=== PATIENT | female | born 1940 | race Caucasian/White ===

== ENCOUNTER 2021-08-07 17:36 | Inpatient (IN) ==
--- NOTE | 2021-08-07 18:40 | Emergency Department Note ---
History of Present Illness General Chief complaint: Illness Stated complaint: URGENT CAR SENT, DIARRHEA, WEAK, DEHYDRATED Time Seen by Provider: 08/07/21 18:27 Source: patient History of Present Illness Provider complaint: Malaise Onset (ago): week(s) Location: head Pain Consistency: + constant Quality: + other (Malaise) Relieved By: + none Associated symptoms: + cough, + fever/chills, + headaches, + malaise, + nausea/vomiting and + weakness; no chest pain or no shortness of breath This is a 81-year-old female sent here from an urgent care center for further evaluation. She has been sick for about 6 to 7 days. She developed general malaise, fatigue and loss of appetite. She had a headache initially but that is seem to gone away. She states that when she sees food she cannot get herself to eat it. She did eat once and then she threw up but has not vomited since and does not feel nauseous currently. She has been forcing herself to drink but she states she generally does not drink very much. She had a fever at the urgent care center of 100.3. She has had loss of taste for about a week as well as judith rrhea. Her diarrhea is watery and loose without blood. It has been going on for 7 days. She denies any abdominal pain, chest pain or shortness of breath. She has had no loss of smell. She has had a minor cough. She has had no urinary symptoms. She was told that her urine was very concentrated at the urgent care center. She has been vaccinated for COVID-19 and did receive a booster. She has had no known sick contacts. Home Medications Medication Instructions Recorded Confirmed Type alendronate 70 mg tablet 70 mg PO WK 08/07/21 08/07/21 History vitamins A,C,F-nmcd-rkeovh 7,160 1 tab PO DAILY 08/07/21 08/07/21 History unit-113 mg-100 unit tablet Allergies Allergy/AdvReac Type Severity Reaction Status Date / Time Sulfa (Sulfonamide Allergy Unknown CAN'T Verified 08/07/21 18:49 Antibiotics) REMEMBER Past Med/Surg History Medical History Osteoporosis Social History Smoking Status: Never smoker Feels Safe at Home: Yes Review of Systems See HPI for pertinent positives & negatives. and A total of 10 systems reviewed and were otherwise negative Physical Exam Vital Signs Vital Signs - 24 hr 08/07/21 17:44 08/07/21 19:25 08/07/21 21:00 Temperature 36.6 C Temperature Source Oral Pulse Rate 98 H 86 Pulse Rate [Apical] 94 H 85 Respiratory Rate 18 20 20 Respiratory Effort / Characteristics Non-Labored Spontaneous Non-Labored Spontaneous Non-Labored Spontaneous Respiratory Depth Normal Normal Normal Respiratory Pattern Regular Regular Regular Blood Pressure 107/61 Blood Pressure [Right Arm] 134/56 L 138/62 Blood Pressure Mean 76 Blood Pressure Mean [Right Arm] 82 87 Blood Pressure Position Sitting Blood Pressure Position [Right Arm] Sitting Sitting Pulse Oximetry 95 95 97 Oxygen Delivery Method Room Air Room Air Sepsis Recent Fever Within 48 Hours No Sepsis New/Unexplained Change in Mental Status No Sepsis Action Taken by Nursing No Action Required Constitutional: Vital signs reviewed. Eyes: Pupils are equal round reactive to light. Conjunctiva are noninjected. ENT: Pharynx is clear without erythema or exudate. Mucous membranes are dry. Neck supple without meningeal signs. Respiratory: Clear to auscultation bilaterally. Breath sounds are equal bilaterally. Cardiovascular: Regular rate and rhythm. No rubs or gallops. GI: Soft, nondistended and nontender. Bowel sounds are present. Musculoskeletal: No peripheral edema. No lower extremity tenderness. Integumentary: No cyanosis. or jaundice. Neurological: The patient is awake and alert. No focal deficits. Hard of hearing. Psychiatric: Normal affect. Not anxious appearing. Course Administered Medications Lactated Ringer's (Lr) 1,000 mls @ 150 mls/hr IV .[id number] ONE Stop: 08/08/21 03:27 Last Admin: 08/07/21 21:31 Dose: 150 mls/hr Documented by: [id number] Discontinued Medications Acetaminophen (Acetaminophen 325 Mg Tab) 650 mg PO NOW STA Stop: 08/07/21 21:10 Last Admin: 08/07/21 21:38 Dose: 650 mg Documented by: [id number] Doxycycline Hyclate (Doxycycline Hyclate 100 Mg Cap) 100 mg PO NOW STA Stop: 08/07/21 20:06 Last Admin: 08/07/21 21:04 Dose: 100 mg Documented by: [id number] Sodium Chloride (Nss) 500 mls @ 80 mls/hr IV .[id number] JUAN J Stop: 09/06/21 18:44 Last Infusion: 08/07/21 21:50 Dose: 0 mls/hr Documented by: [id number] Infusion: 08/07/21 21:46 Dose: 0 mls/hr Documented by: [id number] Infusion: 08/07/21 21:10 Dose: 0 mls/hr Documented by: [id number] Admin: 08/07/21 19:16 Dose: 80 mls/hr Documented by: [id number] Potassium Chloride (Potassium Chloride Crtab 20 Meq Tabcr) 40 meq PO NOW STA Stop: 08/07/21 20:49 Last Admin: 08/07/21 21:15 Dose: Not Given Documented by: [id number] Potassium Chloride (Potassium Chloride Pwd 20 Meq Pack) 40 meq PO NOW STA Stop: 08/07/21 21:24 Last Admin: 08/07/21 21:39 Dose: 40 meq Documented by: [id number] Medical Decision Making Differential Diagnosis Dehydration, ERNESTO, malnourishment, COVID-19, influenza, UTI, metabolic derangement Medical Records Attestation: I reviewed the patient's medical records. I did perform a limited focused review of portions of the patient's old chart on the electronic medical record. The patient has had no recent pertinent visits to this hospital. Home Medications Current Medication List: was personally reviewed by me Laboratory Data Attestation: I reviewed the patient's lab results. Result diagrams: 08/07/21 18:00 08/07/21 18:00 Lab Results 08/07/21 08/07/21 08/07/21 Range/Units 18:00 18:00 18:00 WBC 2.87 L (4.8-10.8) K/uL RBC 4.37 (4.2-5.4) M/uL Hgb 13.4 (12.0-16.0) g/dL Hct 38.2 (37-47) % MCV 87.4 (80-100) fL MCH 30.7 (25-34) pg MCHC 35.1 (32-36) g/dL RDW Std Deviation 43.7 (36.4-46.3) fL RDW Coeff of Soham 13.6 (11.5-14.5) % Plt Count 15 L* (130-400) K/uL Immature Gran % (Auto) 0.3 % Neut % (Auto) 87.9 % Lymph % (Auto) 9.1 % [place] % (Auto) 2.4 % Eos % (Auto) 0.0 % Baso % (Auto) 0.3 % Neut # (Auto) 2.52 (1.4-6.5) K/uL Lymph # (Auto) 0.26 L (1.2-3.4) K/uL [place] # (Auto) 0.07 L (0.11-0.59) K/uL Eos # (Auto) 0.00 (0-0.5) K/uL Baso # (Auto) 0.01 (0-0.2) K/uL Immature Gran # (Auto) 0.01 (0.00-0.02) K/uL Toxic Vacuolation 1+ Platelet Estimate SIGNIFIC DECREASED (Normal) Echinocytes 2+ PT (9.0-12.0) Seconds INR (0.9-1.1) APTT (21.0-31.0) Seconds PTT Ratio Sodium 134 L (136-145) mmol/L Potassium 3.1 L (3.5-5.1) mmol/L Chloride 100 (98-107) mmol/L Carbon Dioxide 21 (21-32) mmol/L Anion Gap 13 H (3-11) BUN 53 H (6-23) mg/dl Creatinine 1.95 H (0.6-1.2) mg/dl Est Cr Clr Drug Dosing 16.6 ml/min Est GFR ( Amer) 27.7 ml/min Est GFR (Non-Af Amer) 23.9 ml/min BUN/Creatinine Ratio 27.2 H (10-20) Glucose 100 H (70-99(Fasting)) mg/dl Calcium 8.2 L (8.5-10.1) mg/dl Magnesium (1.7-2.4) mg/dl Total Bilirubin 2.0 H (0.2-1.0) mg/dl AST 61 H (13-39) U/L ALT 41 (7-52) U/L Alkaline Phosphatase 107 H (34-104) U/L Troponin I (0-0.04) ng/ml Total Protein 5.8 L (6.0-8.3) gm/dl Albumin 3.2 L (3.4-5.0) gm/dl Globulin 2.6 (2.5-4.0) gm/dl Albumin/Globulin Ratio 1.2 (0.9-2) TSH 2.509 (0.300-4.500) uIu/ml Anaplasma Smear See Comment A Anaplasma Comment Pos for Anaplasma Lyme Disease IgG Ab (Negative) Lyme Disease IgM Ab (Negative) SARS-CoV-2 (PCR) (Negative) Influenza Type A (PCR) (Neg) Influenza Type B (PCR) (Neg) RSV (RT-PCR) (Neg) 08/07/21 08/07/21 08/07/21 Range/Units 18:00 18:00 18:00 WBC (4.8-10.8) K/uL RBC (4.2-5.4) M/uL Hgb (12.0-16.0) g/dL Hct (37-47) % MCV (80-100) fL MCH (25-34) pg MCHC (32-36) g/dL RDW Std Deviation (36.4-46.3) fL RDW Coeff of Soham (11.5-14.5) % Plt Count (130-400) K/uL Immature Gran % (Auto) % Neut % (Auto) % Lymph % (Auto) % [place] % (Auto) % Eos % (Auto) % Baso % (Auto) % Neut # (Auto) (1.4-6.5) K/uL Lymph # (Auto) (1.2-3.4) K/uL [place] # (Auto) (0.11-0.59) K/uL Eos # (Auto) (0-0.5) K/uL Baso # (Auto) (0-0.2) K/uL Immature Gran # (Auto) (0.00-0.02) K/uL Toxic Vacuolation Platelet Estimate (Normal) Echinocytes PT (9.0-12.0) Seconds INR (0.9-1.1) APTT (21.0-31.0) Seconds PTT Ratio Sodium (136-145) mmol/L Potassium (3.5-5.1) mmol/L Chloride (98-107) mmol/L Carbon Dioxide (21-32) mmol/L Anion Gap (3-11) BUN (6-23) mg/dl Creatinine (0.6-1.2) mg/dl Est Cr Clr Drug Dosing ml/min Est GFR ( Amer) ml/min Est GFR (Non-Af Amer) ml/min BUN/Creatinine Ratio (10-20) Glucose (70-99(Fasting)) mg/dl Calcium (8.5-10.1) mg/dl Magnesium 2.4 (1.7-2.4) mg/dl Total Bilirubin (0.2-1.0) mg/dl AST (13-39) U/L ALT (7-52) U/L Alkaline Phosphatase (34-104) U/L Troponin I < 0.03 (0-0.04) ng/ml Total Protein (6.0-8.3) gm/dl Albumin (3.4-5.0) gm/dl Globulin (2.5-4.0) gm/dl Albumin/Globulin Ratio (0.9-2) TSH Cancelled (0.300-4.500) uIu/ml Anaplasma Smear Anaplasma Comment Lyme Disease IgG Ab (Negative) Lyme Disease IgM Ab (Negative) SARS-CoV-2 (PCR) (Negative) Influenza Type A (PCR) (Neg) Influenza Type B (PCR) (Neg) RSV (RT-PCR) (Neg) 08/07/21 08/07/21 08/07/21 Range/Units 19:30 19:39 19:39 WBC (4.8-10.8) K/uL RBC (4.2-5.4) M/uL Hgb (12.0-16.0) g/dL Hct (37-47) % MCV (80-100) fL MCH (25-34) pg MCHC (32-36) g/dL RDW Std Deviation (36.4-46.3) fL RDW Coeff of Soham (11.5-14.5) % Plt Count (130-400) K/uL Immature Gran % (Auto) % Neut % (Auto) % Lymph % (Auto) % [place] % (Auto) % Eos % (Auto) % Baso % (Auto) % Neut # (Auto) (1.4-6.5) K/uL Lymph # (Auto) (1.2-3.4) K/uL [place] # (Auto) (0.11-0.59) K/uL Eos # (Auto) (0-0.5) K/uL Baso # (Auto) (0-0.2) K/uL Immature Gran # (Auto) (0.00-0.02) K/uL Toxic Vacuolation Platelet Estimate (Normal) Echinocytes PT 9.8 (9.0-12.0) Seconds INR 0.9 (0.9-1.1) APTT 39.8 H (21.0-31.0) Seconds PTT Ratio 1.4 Sodium (136-145) mmol/L Potassium (3.5-5.1) mmol/L Chloride (98-107) mmol/L Carbon Dioxide (21-32) mmol/L Anion Gap (3-11) BUN (6-23) mg/dl Creatinine (0.6-1.2) mg/dl Est Cr Clr Drug Dosing ml/min Est GFR ( Amer) ml/min Est GFR (Non-Af Amer) ml/min BUN/Creatinine Ratio (10-20) Glucose (70-99(Fasting)) mg/dl Calcium (8.5-10.1) mg/dl Magnesium (1.7-2.4) mg/dl Total Bilirubin (0.2-1.0) mg/dl AST (13-39) U/L ALT (7-52) U/L Alkaline Phosphatase (34-104) U/L Troponin I (0-0.04) ng/ml Total Protein (6.0-8.3) gm/dl Albumin (3.4-5.0) gm/dl Globulin (2.5-4.0) gm/dl Albumin/Globulin Ratio (0.9-2) TSH (0.300-4.500) uIu/ml Anaplasma Smear Anaplasma Comment Lyme Disease IgG Ab Negative (Negative) Lyme Disease IgM Ab Negative (Negative) SARS-CoV-2 (PCR) NEGATIVE (Negative) Influenza Type A (PCR) Negative (Neg) Influenza Type B (PCR) Negative (Neg) RSV (RT-PCR) Negative (Neg) Imaging Data Radiologist's Impression: Chest X-Ray 08/07/21 18:34 XR chest 1V portable CLINICAL HISTORY: weakness. Evaluate cardiopulmonary status COMPARISON STUDY: No previous studies for comparison. TECHNIQUE: 1 view of the chest FINDINGS: Single frontal view of the chest demonstrates the cardiomediastinal silhouette to be within normal limits. There is a decreased inspiratory effort with elevation of the hemidiaphragms and crowding of the bronchovascular markings at the lung bases and centrally. The lungs are clear of alveolar opacities. There is no evidence for pleural effusion. There is no evidence for vascular congestion. There is no acute osseous pathology. IMPRESSION: 1. . There is a decreased inspiratory effort with otherwise no acute chest disease. ACT 112: Negative or not required by law. Electronically signed by: Sidney Glass M.D. 08/07/2021 7:02 PM ECG Data Attestation: I personally reviewed and interpreted this ECG as follows: Indication: + weakness Rate (beats per minute): 89 Rhythm: + normal sinus ECG [place]: + Left axis deviation ECG Findings: + LVH; no PVCs Comparison ECG Date: no prior available MDM Narrative I did evaluate the patient as noted above. The patient is presenting with generalized illness for about 6 to 7 days. IV access was established. She did appear dehydrated so I did treat her with normal saline IV. I did place an order for continuous cardiac monitoring. The monitor showed normal sinus rhythm at a rate of 86 bpm. I did order and personally review the patient's 12-lead EKG as described above. She has LVH and left axis deviation. No prior EKGs available for comparison. She denies having any chest pain or shortness of breath. I did order and personally reviewed the images of the patient's chest x-ray as described above. There is no evidence of pneumonia. I did order a urine analysis. I did order and review the patient's blood work as noted in the electronic medical record. CBC demonstrates leukopenia as well as thrombocytopenia. Electrolytes demonstrate a sodium of 134 and a potassium of 3.1. Creatinine is elevated at 1.95. Calcium is 8.2. Total bili is 2 and AST is 61. Testing for Lyme disease, SARS, influenza and RSV are all negative. Anaplasmosis smear is positive. I did discuss the test results with the patient and her daughter. I did treat the patient with doxycycline 100 mg p.o. I did recommend hospitalization for further care and hydration. I did discuss the case with the hospitalist and case work aide. Impression & Plan ERNESTO (acute kidney injury), Anaplasmosis, Thrombocytopenia, Leukopenia, Hyponatremia, Abnormal LFTs Discharge Plan Visit Data Chief Complaint: Illness Stated Complaint: URGENT CAR SENT, DIARRHEA, WEAK, DEHYDRATED ED Provider: Angel Means Discharge Problem: ERNESTO (acute kidney injury), Anaplasmosis, Thrombocytopenia, Leukopenia, Hyponatremia, Abnormal LFTs Patient Disposition: Being Evaluated by Hospitalist Forms Stand Alone Forms: My [facility] Prescriptions Prescriptions: No Action alendronate 70 mg tablet 70 mg PO WK RF: 0 Ocuvite Preservision 7,160 unit- 113 mg-100 unit Tablet 1 tab PO DAILY RF: 0 Referrals Referrals: Johnny Villarreal, [Primary Care Provider] -
[2021-08-07 18:42] LABS: Albumin Globulin Ratio 1.2 (0.9-2); Albumin Level 3.2 gm/dl (3.4-5.0); BUN Creatinine Ratio 27.2 (10-20); Calcium 8.2 mg/dl (8.5-10.1); Creatinine Clr Calc Pharmacy 16.6 ml/min; Est GFR (African American) 27.7 ml/min; Est GFR (Non-African American) 23.9 ml/min; Globulin 2.6 gm/dl (2.5-4.0); Potassium 3.1 mmol/L (3.5-5.1); Total Protein 5.8 gm/dl (6.0-8.3)
[2021-08-07] MEDS ORDERED: SODIUM CHLORIDE 0.9% 500 ML IV SCH (18:45)
--- NOTE | 2021-08-07 19:03 | XRay Report ---
XR chest 1V portable CLINICAL HISTORY: weakness. Evaluate cardiopulmonary status COMPARISON STUDY: No previous studies for comparison. TECHNIQUE: 1 view of the chest FINDINGS: Single frontal view of the chest demonstrates the cardiomediastinal silhouette to be within normal li mits. There is a decreased inspiratory effort with elevation of the hemidiaphragms and crowding of th e bronchovascular markings at the lung bases and centrally. The lungs are clear of alveolar opacities . There is no evidence for pleural effusion. There is no evidence for vascular congestion. There is n o acute osseous pathology. IMPRESSION: 1. . There is a decreased inspiratory effort with otherwise no acute chest disease. ACT 112: Negative or not required by law. Electronically signed by: Sidney Glass M.D. 08/07/2021 7:02 PM
[2021-08-07 19:23] LABS: Hematocrit (blood only) 38.2 % (37-47); Hemoglobin 13.4 g/dL (12.0-16.0); Mean Corpuscular Hemoglobin 30.7 pg (25-34); Mean Corpuscular Hgb Conc 35.1 g/dL (32-36); Mean Corpuscular Volume 87.4 fL (80-100); Platelet Count 15 K/uL (130-400); RDW Coefficient of Variation 13.6 % (11.5-14.5); RDW Standard Deviation 43.7 fL (36.4-46.3); Red Blood Count 4.37 M/uL (4.2-5.4); White Blood Count 2.87 K/uL (4.8-10.8)
[2021-08-07 19:34] LABS: Basophils # (auto) 0.01 K/uL (0-0.2); Basophils % (auto) 0.3 %; Immature Granulocytes # (auto) 0.01 K/uL (0.00-0.02); Immature Granulocytes % (auto) 0.3 %; Lymphocytes # (auto) 0.26 K/uL (1.2-3.4); Lymphocytes % (auto) 9.1 %; Monocytes # (auto) 0.07 K/uL (0.11-0.59); Monocytes % (auto) 2.4 %; Neutrophils # (auto) 2.52 K/uL (1.4-6.5); Neutrophils % (auto) 87.9 %
[2021-08-07 19:42] LABS: Echinocytes 2+; Platelet Estimate SIGNIFIC DECREASED (Normal); Toxic Vacuolation 1+
[2021-08-07 19:44] LABS: Anaplasmosis Smear(Rpt to DOH) Pos for Anaplasma
[2021-08-07] MEDS ORDERED: DOXYCYCLINE HYCLATE 100 MG CAP PO STA (20:05)
[2021-08-07 20:08] LABS: INR 0.9 (0.9-1.1); Partial Thromboplastin Ratio 1.4; Partial Thromboplastin Time 39.8 Seconds (21.0-31.0); Prothrombin Time 9.8 Seconds (9.0-12.0)
[2021-08-07 20:31] LABS: Influenza A virus by PCR Negative (Neg); Influenza B virus by PCR Negative (Neg); RSV by PCR Negative (Neg); SARS CoV2 RNA(COVID-19) InHosp NEGATIVE (Negative)
[2021-08-07 20:44] LABS: Lyme Ab IgG w/WB Rflx Negative (Negative); Lyme Ab IgM w/WB Rflx Negative (Negative)
[2021-08-07] MEDS ORDERED: POTASSIUM CHLORIDE CRTAB 20 MEQ TABCR PO STA (20:48)
[2021-08-07] MEDS ORDERED: LACTATED RINGER'S 1,000 ML IV ONE (20:48)
[2021-08-07] MEDS ORDERED: ACETAMINOPHEN 325 MG TAB PO STA (21:09)
[2021-08-07] MEDS ORDERED: POTASSIUM CHLORIDE PWD 20 MEQ PACK PO STA (21:23)
--- NOTE | 2021-08-07 22:20 | History & Physical Report ---
Date of Service August 07, 2021 Assessment & Plan (1) ARF (acute renal failure): Plan: Secondary to diarrheal illness from anaplasmosis Hypokalemia secondary to diarrheal illness Neutropenia, thrombocytopenia secondary to tickborne infection GMF Monitor creatinine response to IVF Nephrology consult if without improvement Doxycycline course for anaplasmosis Replace potassium DVT prophylaxis. SCDs Re: Thrombocytopenia Full code Patient daughter requesting updates from providers. Ms. Kristy Mccormick, contact #[phone]. Text document was generated using [employer] voice recognition software. It may contain grammatical or spelling errors. Kindly contact undersigned for clarification of any documentation item in question. History of Present Illness Chief Complaint: Diarrhea, weakness, dehydration Primary Care Provider: Johnny Villarreal, History obtained from patient, family, and records. History somewhat difficult to obtain from patient secondary to hearing impairment. Medical history significant for hearing loss, osteoporosis. One week history of fatigue, poor appetite, diarrhea yielding dark brown stools, left lower quadrant pain and generalized weakness. No chest pain, no S OB, no cough symptoms. Achy posterior headache symptoms, intermittent. No recollection of recent tick bites although there are a lot of ticks where patient lives. Dizziness described as lightheadedness about 5 days ago leading to fall and bruising on the left upper arm. Home COVID-19 test was negative. Patient seen at urgent care center today. Patient directed to ER for further evaluation. Patient given Doxycycline for possible anaplasmosis. Medical History as above Surgical History : Appendectomy, CHELO/BSO, ankle fracture surgery Family History : Breast cancer, stomach cancer, lung cancer, heart disease Personal/Social history : Non-smoker, occasional EtOH intake, lives with who has dementia Allergies Allergy/AdvReac Type Severity Reaction Status Date / Time Sulfa (Sulfonamide Allergy Unknown CAN'T Verified 08/07/21 18:49 Antibiotics) REMEMBER Home Medications Medication Instructions Recorded Confirmed Type alendronate 70 mg tablet 70 mg PO WK 08/07/21 08/07/21 History vitamins A,C,V-ijpo-awnvft 7,160 1 tab PO DAILY 08/07/21 08/07/21 History unit-113 mg-100 unit tablet Past Med/Surg History Medical History Osteoporosis Social History Smoking Status: Never smoker Hx Alcohol Use: No Hx Substance Use: No Preferred Language: Gabonese Communication Ability: Effective Yarn Conditioner Required: No Beliefs That Will Affect Care: None Current Living Situation: Spouse Current Living Situation Comment: Lives with (who has dementia) in a 1 story home. Other Information That Helps Us Care for You: No Feels Safe at Home: Yes Safety Concerns: Feels Safe At This Time Assistive Devices: Glasses and Hearing Aid - Bilateral Review of Systems Review of Systems: As per HPI, all 10 systems reviewed, all other ROS negative Physical Exam Physical Exam: GENERAL: Slightly uncomfortable, hard of hearing, no respiratory distress SKIN: Normal color, warm HEENT: [place] palpebral conjunctivae, no ptosis, chronic upper lip symmetry as per daughter, dry buccal mucosa NECK : Supple, no tenderness CHEST : CTA, no tenderness HEART : RRR, no obvious murmurs ABDOMEN: Some distention, nontender EXTREMITIES : No LE swelling/tenderness, ecchymosis left upper arm NEUROLOGIC : Coherent, chronic upper lip asymmetry, hard of hearing, gait and stance not assessed Results & Data Results & Data ([facility]) Vital Signs (Past 12 Hours) Vital Signs Temp Pulse Pulse Resp BP BP Pulse Ox 08/07/21 21:00 85 20 138/62 97 08/07/21 19:25 86 94 H 20 134/56 L 95 08/07/21 17:44 36.6 C 98 H 18 107/61 95 Laboratory Results 08/07/21 08/07/21 08/07/21 18:00 18:00 18:00 WBC 2.87 L RBC 4.37 Hgb 13.4 Hct 38.2 MCV 87.4 MCH 30.7 MCHC 35.1 RDW Std Deviation 43.7 RDW Coeff of Soham 13.6 Plt Count 15 L* Immature Gran % (Auto) 0.3 Neut % (Auto) 87.9 Lymph % (Auto) 9.1 [place] % (Auto) 2.4 Eos % (Auto) 0.0 Baso % (Auto) 0.3 Neut # (Auto) 2.52 Lymph # (Auto) 0.26 L [place] # (Auto) 0.07 L Eos # (Auto) 0.00 Baso # (Auto) 0.01 Immature Gran # (Auto) 0.01 Toxic Vacuolation 1+ Platelet Estimate SIGNIFIC DECREASED Echinocytes 2+ PT INR APTT PTT Ratio Sodium 134 L Potassium 3.1 L Chloride 100 Carbon Dioxide 21 Anion Gap 13 H BUN 53 H Creatinine 1.95 H Est Cr Clr Drug Dosing 16.6 Est GFR ( Amer) 27.7 Est GFR (Non-Af Amer) 23.9 BUN/Creatinine Ratio 27.2 H Glucose 100 H Calcium 8.2 L Magnesium Total Bilirubin 2.0 H AST 61 H ALT 41 Alkaline Phosphatase 107 H Troponin I Total Protein 5.8 L Albumin 3.2 L Globulin 2.6 Albumin/Globulin Ratio 1.2 TSH 2.509 Anaplasma Smear See Comment A Anaplasma Comment Pos for Anaplasma Lyme Disease IgG Ab Lyme Disease IgM Ab SARS-CoV-2 (PCR) Influenza Type A (PCR) Influenza Type B (PCR) RSV (RT-PCR) 08/07/21 08/07/21 08/07/21 18:00 18:00 18:00 WBC RBC Hgb Hct MCV MCH MCHC RDW Std Deviation RDW Coeff of Soahm Plt Count Immature Gran % (Auto) Neut % (Auto) Lymph % (Auto) [place] % (Auto) Eos % (Auto) Baso % (Auto) Neut # (Auto) Lymph # (Auto) [place] # (Auto) Eos # (Auto) Baso # (Auto) Immature Gran # (Auto) Toxic Vacuolation Platelet Estimate Echinocytes PT INR APTT PTT Ratio Sodium Potassium Chloride Carbon Dioxide Anion Gap BUN Creatinine Est Cr Clr Drug Dosing Est GFR ( Amer) Est GFR (Non-Af Amer) BUN/Creatinine Ratio Glucose Calcium Magnesium 2.4 Total Bilirubin AST ALT Alkaline Phosphatase Troponin I < 0.03 Total Protein Albumin Globulin Albumin/Globulin Ratio TSH Cancelled Anaplasma Smear Anaplasma Comment Lyme Disease IgG Ab Lyme Disease IgM Ab SARS-CoV-2 (PCR) Influenza Type A (PCR) Influenza Type B (PCR) RSV (RT-PCR) 08/07/21 08/07/21 08/07/21 19:30 19:39 19:39 WBC RBC Hgb Hct MCV MCH MCHC RDW Std Deviation RDW Coeff of Soham Plt Count Immature Gran % (Auto) Neut % (Auto) Lymph % (Auto) [place] % (Auto) Eos % (Auto) Baso % (Auto) Neut # (Auto) Lymph # (Auto) [place] # (Auto) Eos # (Auto) Baso # (Auto) Immature Gran # (Auto) Toxic Vacuolation Platelet Estimate Echinocytes PT 9.8 INR 0.9 APTT 39.8 H PTT Ratio 1.4 Sodium Potassium Chloride Carbon Dioxide Anion Gap BUN Creatinine Est Cr Clr Drug Dosing Est GFR ( Amer) Est GFR (Non-Af Amer) BUN/Creatinine Ratio Glucose Calcium Magnesium Total Bilirubin AST ALT Alkaline Phosphatase Troponin I Total Protein Albumin Globulin Albumin/Globulin Ratio TSH Anaplasma Smear Anaplasma Comment Lyme Disease IgG Ab Negative Lyme Disease IgM Ab Negative SARS-CoV-2 (PCR) NEGATIVE Influenza Type A (PCR) Negative Influenza Type B (PCR) Negative RSV (RT-PCR) Negative Diagnostic Findings CT head initial read: No intracranial hemorrhage, mass-effect or midline shift. There is no abnormal extra axial fluid collection. No evidence of acute infarct. Moderate periventricular white matter hypodensities are most consistent with chronic micro-angiopathy. Mild cortical atrophy. The visualized paranasal sinuses and mastoid air cells are clear. No fracture. CT abdomen pelvis initial read: The solid organs are within normal limits. No bowel obstruction. Sigmoid diverticulosiswithout evidence of diverticulitis. Nonvisualized appendix, however there are no secondarysigns of acute appendicitis. No fracture. Chest x-ray : There is a decreased inspiratory effort with otherwise no acute chest disease. EKG as per my interpretation : Rate 90, NSR, LAD, LAFB, LVH, no ischemia
[2021-08-07 23:07] LABS: Base Excess VBG -0.5 mEq/L; Oxygen Saturation VBG 80.6 %; pH VBG 7.49 (7.36-7.41)
[2021-08-07 23:29] LABS: BUN Creatinine Ratio 29.3 (10-20); Calcium 7.7 mg/dl (8.5-10.1); Est GFR (African American) 28.4 ml/min; Est GFR (Non-African American) 24.5 ml/min; Potassium 3.8 mmol/L (3.5-5.1)
[2021-08-08] MEDS ORDERED: HYDROmorphone INJ 0.5 MG/0.5 ML SYR IV PRN (00:01)
[2021-08-08] MEDS ORDERED: PROMETHAZINE HCL 6.25 MG in SODIUM CHLORIDE 0.9% 50 ML IV PRN (00:01)
[2021-08-08 02:38] LABS: Appearance Urine Cloudy (Clear); Bacteria Urine Automated Negative (Negative); Blood Urine 1+ (Negative); Color Urine Dark Yellow; Epithelial Cell Urine Auto >30 /lpf (0-5); Glucose Urine UA Negative (Negative); Ketones Urine Trace (Negative); Leukocyte Esterase Urine Trace (Negative); Nitrite Urine Negative (Negative); Protein Urine 2+ (Negative); RBC Urine Automated 0-4 /hpf (0-4); Specific Gravity Urine 1.017 (1.000-1.030); Urobilinogen Urine Negative (Negative)
[2021-08-08 02:44] LABS: Bilirubin Urine 1+ (Negative)
[2021-08-08] MEDS ORDERED: LACTATED RINGER'S 1,000 ML IV ONE (03:30)
--- NOTE | 2021-08-08 07:50 | CT Scan Report ---
CT OF THE HEAD WITHOUT CONTRAST CLINICAL HISTORY: Headache. COMPARISON STUDY: No previous studies for comparison. CT DOSE: 614.27 mGy.cm TECHNIQUE: Helical axial images of the head were obtained without IV contrast. Automated exposure con trol was utilized for the study. A dose lowering technique was utilized adhering to the principles o f ALARA. FINDINGS: No acute intracranial hemorrhage, midline shift or mass effect is present. White matter hyp odensities are suggestive of small vessel disease. Mild ventricular dilatation is likely due to centr al atrophy. The basal cisterns are patent. No extra-axial collections are present. There are no findi ngs to suggest acute dural sinus thrombosis or acute territorial infarct. No significant calvarial ab normalities are present. Visualized portions of the sinuses and mastoid air cells are clear. IMPRESSION: No acute intracranial findings. ACT 112: Negative or not required by law. Electronically signed by: Lior Grayson M.D. 08/08/2021 7:48 AM
--- NOTE | 2021-08-08 08:36 | CT Scan Report ---
CT OF THE ABDOMEN AND PELVIS WITHOUT CONTRAST CLINICAL HISTORY: Left-sided abdominal pain. COMPARISON STUDY: No previous studies for comparison. TECHNIQUE: Axial images of the abdomen and pelvis were obtained without IV contrast. Images were revi ewed in the axial, sagittal, and coronal planes. Automated exposure control was utilized for the jaqueline dy. A dose lowering technique was utilized adhering to the principles of ALARA. FINDINGS: No pneumatosis, free air or portal venous gas is present. No renal, ureteral or bladder lisette culi are present. No hydronephrosis or hydroureter. Evaluation of the remainder of the abdomen and pe lvis is suboptimal on this unenhanced exam. The liver, spleen, adrenal glands, kidneys and pancreas a re unremarkable. Note is made of a 1.5 cm lesion arising from the upper pole of the right kidney show n on axial image 150 of 441. This measures above water attenuation. There is no evidence for a bowel obstruction. The appendix is not visualized. There is no ascites. No fluid collection is suggest an a bscess. Note is made of moderate levoscoliosis of the lumbar spine. No acute fracture or suspicious l esion is identified within the visualized skeletal structures. IMPRESSION: 1. No urinary calculi or hydronephrosis. 2. No acute process within the abdomen or pelvis on unenhanced exam. 3. 1.5 cm lesion within the upper pole of the right kidney. This measures above water attenuation. Th is could reflect a solid renal lesion or hyperdense cyst. Nonemergent renal protocol CT is recommende d. Findings will be called/faxed to the ordering provider at time of dictation. ACT 112: Positive. There are findings on this exam that require communication between the performing entity and the patient following Patient Test Result Information Act ([place] Act 112) guidelines. Electronically signed by: Lior Grayson M.D. 08/08/2021 8:34 AM
[2021-08-08 09:26] LABS: Estimated Average Glucose 117 mg/dl; Hemoglobin A1C 5.7 % (4.5-5.6)
[2021-08-08] MEDS: DOXYCYCLINE HYCLATE 100 MG CAP PO SCH ×2 (09:33→20:02)
[2021-08-08 09:40] LABS: Albumin Globulin Ratio 1.2 (0.9-2); Albumin Level 2.4 gm/dl (3.4-5.0); BUN Creatinine Ratio 29.2 (10-20); Bilirubin,Total 1.3 mg/dl (0.2-1.0); Calcium 7.5 mg/dl (8.5-10.1); Est GFR (African American) 28.2 ml/min; Est GFR (Non-African American) 24.3 ml/min; Potassium 3.5 mmol/L (3.5-5.1); Total Protein 4.4 gm/dl (6.0-8.3)
[2021-08-08 09:41] LABS: Basophils # (auto) 0.03 K/uL (0-0.2); Basophils % (auto) 0.7 %; Echinocytes 1+; Hemoglobin 11.2 g/dL (12.0-16.0); Immature Granulocytes # (auto) 0.04 K/uL (0.00-0.02); Immature Granulocytes % (auto) 0.9 %; Lymphocytes # (auto) 0.67 K/uL (1.2-3.4); Lymphocytes % (auto) 15.1 %; Mean Corpuscular Hemoglobin 30.4 pg (25-34); Mean Corpuscular Volume 86.7 fL (80-100); Monocytes # (auto) 0.26 K/uL (0.11-0.59); Monocytes % (auto) 5.9 %; Neutrophils # (auto) 3.43 K/uL (1.4-6.5); Neutrophils % (auto) 77.4 %; Platelet Count 13 K/uL (130-400); Platelet Estimate SIGNIFIC DECREASED (Normal); RDW Coefficient of Variation 13.9 % (11.5-14.5); RDW Standard Deviation 44.5 fL (36.4-46.3); Red Blood Count 3.69 M/uL (4.2-5.4); White Blood Count 4.43 K/uL (4.8-10.8)
--- NOTE | 2021-08-08 11:18 | Electrocardiogram Report ---
Test Reason : Blood Pressure : / mmHG Vent. Rate : 089 BPM Atrial Rate : 089 BPM P-R Int : 148 ms QRS Dur : 084 ms QT Int : 360 ms P-R-T Axes : 051 -36 065 degrees QTc Int : 438 ms Normal sinus rhythm Left atrial enlargement Left axis deviation Left ventricular hypertrophy Abnormal ECG No previous ECGs available Confirmed by Thiago Lewis ([id number]) on 08/08/2021 11:18:43 AM Referred By: REFERRED SELF Confirmed By:Thiago Lewis
--- NOTE | 2021-08-08 16:31 | Hospitalist Progress Note ---
Date of Service August 08, 2021 Assessment & Plan (1) ARF (acute renal failure): Plan: Secondary to diarrheal illness from anaplasmosis, improved. She is tolerating PO now, will use IVF as needed until creatinine back to baseline. Replace lytes as needed. Hypokalemia secondary to diarrheal illness Neutropenia, thrombocytopenia secondary to tickborne infection. Improving TEDs, chemoprophylaixs contraindicated in setting of severe thrombocytopenia Full Code Dispo-to home when clinical improved and renal function returns to baseline. Lisseth Nichols DO [facility] Hospitalist (2) Anaplasmosis: (3) Thrombocytopenia: (4) Leukopenia: (5) Hyponatremia: (6) Abnormal LFTs: (7) Osteoporosis: (8) DVT prophylaxis: Admission and Anticipated Discharge Date Admission Date: August 07, 2021 Subjective 81 yo F admitted with anaplasmosis She is clinically improving and now has an appetite with food in front of her She denies pain She denies SOB, CP, abd pain denies fever Review of Systems Review of Systems: All systems were reviewed and negative except as indicated above. Physical Exam Physical Exam: CONSTITUTIONAL: WNWD, vitals as above, generally well- appearing EYES: normal conjunctivae, no scleral icterus ENT: external ear and nose normal, MMM NECK: trachea midline RESPIRATORY: clear to auscultation bilaterally, no crackles, rales or wheezes, normal respiratory effort CARDIOVASCULAR: regular rate and rhythm, S1 and 2 heard without murmurs, gallops or rubs, no JVD, no peripheral edema GASTROINTESTINAL: normal bowel sounds, soft, nontender, ND, no guarding MUSCULOSKELETAL: strength 5/5 throughout, head is normocephalic and atraumatic, SKIN: warm and dry, mild petechial appearance to legs NEUROLOGIC: CN 2-12 grossly intact, no sensory deficit, normal cognition, normal speech, no tremor PSYCHIATRIC: alert cooperative and oriented to person, place and time. Results & Data Results & Data ([facility]) Vital Signs (Past 12 Hours) Vital Signs Temp Pulse Resp BP Pulse Ox 08/08/21 15:47 36.5 C 68 18 117/66 95 08/08/21 07:57 36.8 C 68 18 92/55 L 94 Laboratory Results Short CBC 08/07/21 08/08/21 Range/Units 18:00 08:16 WBC 2.87 L 4.43 L (4.8-10.8) K/uL Hgb 13.4 11.2 L (12.0-16.0) g/dL Hct 38.2 32.0 L (37-47) % Plt Count 15 L* 13 L* (130-400) K/uL BMP 08/07/21 08/07/21 08/08/21 18:00 22:45 08:16 Sodium 134 L 132 L 134 L Potassium 3.1 L 3.8 D 3.5 Chloride 100 103 105 Carbon Dioxide BUN 53 H 56 H 56 H Creatinine 1.95 H 1.91 H 1.92 H Glucose 100 H 129 H 87 Calcium 8.2 L 7.7 L 7.5 L Cardiac Enzymes 08/07/21 08/08/21 Range/Units 18:00 08:16 Total Creatine Kinase 88 (26-192) U/L Troponin I < 0.03 (0-0.04) ng/ml Liver Function 08/07/21 08/08/21 Range/Units 18:00 08:16 Total Bilirubin 2.0 H 1.3 H (0.2-1.0) mg/dl AST 61 H 41 H (13-39) U/L ALT 41 29 (7-52) U/L Alkaline Phosphatase 107 H 82 (34-104) U/L Albumin 3.2 L 2.4 L (3.4-5.0) gm/dl Urine 08/08/21 Range/Units 01:45 Urine Color Dark Yellow Urine Appearance Cloudy A (Clear) Urine pH 5.0 (4.5-7.5) Ur Specific [place] 1.017 (1.000-1.030) Urine Protein 2+ H (Negative) Urine Glucose (UA) Negative (Negative) Diagnostic Findings Head CT 08/07/21 21:10 CT OF THE HEAD WITHOUT CONTRAST CLINICAL HISTORY: Headache. COMPARISON STUDY: No previous studies for comparison. CT DOSE: 614.27 mGy.cm TECHNIQUE: Helical axial images of the head were obtained without IV contrast. Automated exposure control was utilized for the study. A dose lowering technique was utilized adhering to the principles of ALARA. FINDINGS: No acute intracranial hemorrhage, midline shift or mass effect is present. White matter hypodensities are suggestive of small vessel disease. Mild ventricular dilatation is likely due to central atrophy. The basal cisterns are patent. No extra-axial collections are present. There are no findings to suggest acute dural sinus thrombosis or acute territorial infarct. No significant calvarial abnormalities are present. Visualized portions of the sinuses and mastoid air cells are clear. IMPRESSION: No acute intracranial findings. ACT 112: Negative or not required by law. Electronically signed by: Lior Grayson M.D. 08/08/2021 7:48 AM Abdomen/Pelvis CT 08/07/21 22:18 CT OF THE ABDOMEN AND PELVIS WITHOUT CONTRAST CLINICAL HISTORY: Left-sided abdominal pain. COMPARISON STUDY: No previous studies for comparison. TECHNIQUE: Axial images of the abdomen and pelvis were obtained without IV contrast. Images were reviewed in the axial, sagittal, and coronal planes. Automated exposure control was utilized for the study. A dose lowering technique was utilized adhering to the principles of ALARA. FINDINGS: No pneumatosis, free air or portal venous gas is present. No renal, u reteral or bladder calculi are present. No hydronephrosis or hydroureter. Evaluation of the remainder of the abdomen and pelvis is suboptimal on this unenhanced exam. The liver, spleen, adrenal glands, kidneys and pancreas are unremarkable. Note is made of a 1.5 cm lesion arising from the upper pole of the right kidney shown on axial image 150 of 441. This measures above water attenuation. There is no evidence for a bowel obstruction. The appendix is not visualized. There is no ascites. No fluid collection is suggest an abscess. Note is made of moderate levoscoliosis of the lumbar spine. No acute fracture or suspicious lesion is identified within the visualized skeletal structures. IMPRESSION: 1. No urinary calculi or hydronephrosis. 2. No acute process within the abdomen or pelvis on unenhanced exam. 3. 1.5 cm lesion within the upper pole of the right kidney. This measures above water attenuation. This could reflect a solid renal lesion or hyperdense cyst. Nonemergent renal protocol CT is recommended. Findings will be called/faxed to the ordering provider at time of dictation. ACT 112: Positive. There are findings on this exam that require communication between the performing entity and the patient following Patient Test Result Information Act ([place] Act 112) guidelines. Electronically signed by: Lior Grayson M.D. 08/08/2021 8:34 AM Medications Administered Current Inpatient Medications Doxycycline Hyclate (Doxycycline Hyclate 100 Mg Cap) 100 mg PO BID JUAN J Stop: 08/18/21 08:59 Last Admin: 08/08/21 09:33 Dose: 100 mg Documented by: Hydromorphone HCl (Hydromorphone Inj 0.5 Mg/0.5 Ml Syr) 0.25 mg IV Q6H PRN PRN Reason: Pain Stop: 08/22/21 00:00 Promethazine HCl 6.25 mg/ (Sodium Chloride) 50.25 mls @ 201 mls/hr IV Q6H PRN PRN Reason: Nausea And Vomiting Stop: 09/07/21 00:00 Tramadol HCl (Tramadol Hcl 50 Mg Tablet) 25 - 50 mg PO Q4H PRN PRN Reason: Pain Stop: 09/06/21 21:09 (1) Leukopenia Leukopenia type: unspecified Qualified Code(s): D72.819 - Decreased white blood cell count, unspecified
[2021-08-09] MEDS: traMADol HCL 50 MG TABLET PO PRN ×2 (03:23→20:44)
[2021-08-09 08:28] LABS: Albumin Globulin Ratio 1.1 (0.9-2); Albumin Level 2.3 gm/dl (3.4-5.0); BUN Creatinine Ratio 33.6 (10-20); Bilirubin,Total 0.9 mg/dl (0.2-1.0); Calcium 7.9 mg/dl (8.5-10.1); Creatinine Clr Calc Pharmacy 24.3 ml/min; Est GFR (African American) 43.6 ml/min; Est GFR (Non-African American) 37.6 ml/min; Potassium 3.3 mmol/L (3.5-5.1); Total Protein 4.3 gm/dl (6.0-8.3)
[2021-08-09 08:48] LABS: Hematocrit (blood only) 32.4 % (37-47); Hemoglobin 11.6 g/dL (12.0-16.0); Mean Corpuscular Hemoglobin 30.6 pg (25-34); Mean Corpuscular Hgb Conc 35.8 g/dL (32-36); Mean Corpuscular Volume 85.5 fL (80-100); Mean Platelet Volume 12.8 fL (7.4-10.4); Platelet Count 21 K/uL (130-400); RDW Coefficient of Variation 14.1 % (11.5-14.5); RDW Standard Deviation 44.5 fL (36.4-46.3); Red Blood Count 3.79 M/uL (4.2-5.4)
[2021-08-09 08:56] LABS: Acanthocytes 1+; Basophils # (auto) 0.02 K/uL (0-0.2); Basophils % (auto) 0.5 %; Echinocytes 1+; Eosinophils # (auto) 0.01 K/uL (0-0.5); Eosinophils % (auto) 0.3 %; Immature Granulocytes # (auto) 0.03 K/uL (0.00-0.02); Immature Granulocytes % (auto) 0.8 %; Lymphocytes # (auto) 0.88 K/uL (1.2-3.4); Lymphocytes % (auto) 23.2 %; Microcytosis Present; Monocytes # (auto) 0.36 K/uL (0.11-0.59); Monocytes % (auto) 9.5 %; Neutrophils % (auto) 65.7 %
[2021-08-09] MEDS: DOXYCYCLINE HYCLATE 100 MG CAP PO SCH ×2 (09:35→20:45)
[2021-08-09] MEDS ORDERED: SODIUM CHLORIDE 0.9% 1000ML 1,000 ML IV SCH (10:00)
[2021-08-09] MEDS ORDERED: POTASSIUM CHLORIDE CRTAB 20 MEQ TABCR PO STA (10:00)
--- NOTE | 2021-08-09 13:52 | Hospitalist Progress Note ---
Date of Service August 09, 2021 Assessment & Plan (1) ARF (acute renal failure): Plan: Secondary to diarrheal illness and poor PO intake from anaplasmosis, improved. She is tolerating PO now, will use IVF as needed until creatinine back to baseline. Replace lytes as needed. Neutropenia, thrombocytopenia secondary to tickborne infection. Improving with doxycycline. (2) Anaplasmosis: (3) Thrombocytopenia: (4) Leukopenia: (5) Hyponatremia: (6) Renal mass: Plan: 1.5 cm lesion within the upper pole of the right kidney. This measures above water attenuation. This could reflect a solid renal lesion or hyperdense cyst. Nonemergent renal protocol CT is recommended which cannot be performed until her kidney function is improved. Will defer until that time. (7) Abnormal LFTs: (8) Osteoporosis: (9) DVT prophylaxis: Plan: TEDs, chemoprophylaixs contraindicated in setting of severe thrombocytopenia Full Code Dispo-to home when clinical improved and renal function returns to baseline. Lisseth Nichols DO [facility] Hospitalist Admission and Anticipated Discharge Date Admission Date: August 07, 2021 Subjective 81 yo F admitted with anaplasmosis She is clinically improved She denies pain She denies SOB, CP, abd pain denies fever Review of Systems Review of Systems: All systems were reviewed and negative except as indicated above. Physical Exam Physical Exam: CONSTITUTIONAL: WNWD, vitals as above, generally well- appearing EYES: normal conjunctivae, no scleral icterus ENT: external ear and nose normal, MMM NECK: trachea midline RESPIRATORY: clear to auscultation bilaterally, no crackles, rales or wheezes, normal respiratory effort CARDIOVASCULAR: regular rate and rhythm, S1 and 2 heard without murmurs, gallops or rubs, no JVD, no peripheral edema GASTROINTESTINAL: normal bowel sounds, soft, nontender, ND, no guarding MUSCULOSKELETAL: strength 5/5 throughout, head is normocephalic and atraumatic, SKIN: warm and dry, mild petechial appearance to legs NEUROLOGIC: CN 2-12 grossly intact, no sensory deficit, normal cognition, normal speech, no tremor PSYCHIATRIC: alert cooperative and oriented to person, place and time. Results & Data Results & Data ([facility]) Vital Signs (Past 12 Hours) Vital Signs Temp Pulse Resp BP Pulse Ox 08/09/21 07:40 36.5 C 71 15 126/61 96 Laboratory Results Short CBC 08/09/21 Range/Units 07:53 WBC 3.80 L (4.8-10.8) K/uL Hgb 11.6 L (12.0-16.0) g/dL Hct 32.4 L (37-47) % Plt Count 21 L* D (130-400) K/uL BMP 08/09/21 07:53 Sodium 138 Potassium 3.3 L Chloride 108 H Carbon Dioxide 23 BUN 45 H Creatinine 1.34 H D Glucose 78 Calcium 7.9 L Liver Function 08/09/21 Range/Units 07:53 Total Bilirubin 0.9 (0.2-1.0) mg/dl AST 37 (13-39) U/L ALT 27 (7-52) U/L Alkaline Phosphatase 112 H (34-104) U/L Albumin 2.3 L (3.4-5.0) gm/dl Medications Administered Current Inpatient Medications Doxycycline Hyclate (Doxycycline Hyclate 100 Mg Cap) 100 mg PO BID [facility] Stop: 08/18/21 08:59 Last Admin: 08/09/21 09:35 Dose: 100 mg Documented by: Hydromorphone HCl (Hydromorphone Inj 0.5 Mg/0.5 Ml Syr) 0.25 mg IV Q6H PRN PRN Reason: Pain Stop: 08/22/21 00:00 Promethazine HCl 6.25 mg/ (Sodium Chloride) 50.25 mls @ 201 mls/hr IV Q6H PRN PRN Reason: Nausea And Vomiting Stop: 09/07/21 00:00 Sodium Chloride (Nss 1000ml) 1,000 mls @ 80 mls/hr IV .[id number] [facility] Stop: 08/09/21 22:29 Last Admin: 08/09/21 10:36 Dose: 80 mls/hr Documented by: Tramadol HCl (Tramadol Hcl 50 Mg Tablet) 25 - 50 mg PO Q4H PRN PRN Reason: Pain Stop: 09/06/21 21:09 Last Admin: 08/09/21 03:23 Dose: 50 mg Documented by: (1) Leukopenia Leukopenia type: unspecified Qualified Code(s): D72.819 - Decreased white blood cell count, unspecified
[2021-08-10 08:22] LABS: Hematocrit (blood only) 33.7 % (37-47); Hemoglobin 11.6 g/dL (12.0-16.0); Mean Corpuscular Hemoglobin 30.3 pg (25-34); Mean Corpuscular Hgb Conc 34.4 g/dL (32-36); Platelet Count 34 K/uL (130-400); RDW Coefficient of Variation 14.4 % (11.5-14.5); RDW Standard Deviation 46.8 fL (36.4-46.3); Red Blood Count 3.83 M/uL (4.2-5.4); White Blood Count 3.31 K/uL (4.8-10.8)
[2021-08-10 08:23] LABS: Platelet Estimate Decreased (Normal)
[2021-08-10 08:45] LABS: Albumin Globulin Ratio 1.1 (0.9-2); Albumin Level 2.3 gm/dl (3.4-5.0); BUN Creatinine Ratio 26.2 (10-20); Bilirubin,Total 0.8 mg/dl (0.2-1.0); Calcium 7.9 mg/dl (8.5-10.1); Creatinine Clr Calc Pharmacy 30.4 ml/min; Est GFR (African American) 57.2 ml/min; Est GFR (Non-African American) 49.3 ml/min; Magnesium 1.9 mg/dl (1.7-2.4); Phosphorus 2.7 mg/dl (2.5-4.9); Potassium 4.2 mmol/L (3.5-5.1); Total Protein 4.3 gm/dl (6.0-8.3)
[2021-08-10] MEDS: DOXYCYCLINE HYCLATE 100 MG CAP PO SCH (08:56)
--- NOTE | 2021-08-10 09:20 | Discharge Summary ---
Date of Service August 10, 2021 Admission HPI Per Admitting Provider History obtained from patient, family, and records. History somewhat difficult to obtain from patient secondary to hearing impairment. Medical history significant for hearing loss, osteoporosis. One week history of fatigue, poor appetite, diarrhea yielding dark brown stools, left lower quadrant pain and generalized weakness. No chest pain, no S OB, no cough symptoms. Achy posterior headache symptoms, intermittent. No recollection of recent tick bites although there are a lot of ticks where patient lives. Dizziness described as lightheadedness about 5 days ago leading to fall and bruising on the left upper arm. Home COVID-19 test was negative. Patient seen at urgent care center today. Patient directed to ER for further evaluation. Patient given Doxycycline for possible anaplasmosis. Medical History as above Surgical History : Appendectomy, CHELO/BSO, ankle fracture surgery Family History : Breast cancer, stomach cancer, lung cancer, heart disease Personal/Social history : Non-smoker, occasional EtOH intake, lives with who has dementia Principal Diagnosis Anaplasmosis Acute renal failure Right kidney mass Discharge Exam CONSTITUTIONAL: WNWD, vitals as above, generally well-appearing EYES: normal conjunctivae, no scleral icterus ENT: external ear and nose normal, MMM NECK: trachea midline RESPIRATORY: clear to auscultation bilaterally, no crackles, rales or wheezes, normal respiratory effort CARDIOVASCULAR: regular rate and rhythm, S1 and 2 heard without murmurs, gallops or rubs, no JVD, no peripheral edema GASTROINTESTINAL: normal bowel sounds, soft, nontender, ND, no guarding MUSCULOSKELETAL: strength 5/5 throughout, head is normocephalic and atraumatic, SKIN: warm and dry, mild petechial appearance to legs NEUROLOGIC: CN 2-12 grossly intact, no sensory deficit, normal cognition, normal speech, no tremor PSYCHIATRIC: alert cooperative and oriented to person, place and time. Discharge Data Allergies Allergy/AdvReac Type Severity Reaction Status Date / Time Sulfa (Sulfonamide Allergy Unknown CAN'T Verified 08/07/21 18:49 Antibiotics) REMEMBER Consultations 08/07/21 20:08 ED Decision to Admit Stat Ordered Studies 08/07/21 21:10 CT head/brain wo con Urgent 08/07/21 22:18 CT abd pelvis wo con Urgent Hospital Course (1) ARF (acute renal failure): Secondary to diarrheal illness and poor PO intake from anaplasmosis, improved. She is tolerating PO now, will use IVF as needed until creatinine back to baseline. Replace lytes as needed. Neutropenia, thrombocytopenia secondary to tickborne infection. Improving with doxycycline. (2) Anaplasmosis: (3) Thrombocytopenia: (4) Leukopenia: (5) Hyponatremia: (6) Renal mass: 1.5 cm lesion within the upper pole of the right kidney. This measures above water attenuation. This could reflect a solid renal lesion or hyperdense cyst. Nonemergent renal protocol CT is recommended which cannot be performed until her kidney function is improved. Will defer until that time. (7) Abnormal LFTs: (8) Osteoporosis: (9) DVT prophylaxis: TEDs, chemoprophylaixs contraindicated in setting of severe thrombocytopenia Full Code Dispo-to home when clinical improved and renal function returns to baseline. [facility] Discharge Items Patient Disposition: Home - Self-Care Reason For Visit: ARF Discharge Diagnosis: Anaplasmosis Acute renal failure Right kidney mass Condition on Discharge: Good Activity: Resume your previous activity Non-emergency contact: Primary Care Provider Call non-emergency contact if: you have any medication questions, your symptoms worsen and you have a fever Follow-up/Referrals: Johnny Villarreal DO [Primary Care Provider] - Diet: Regular Addtl Attending Provider Instructions: You were diagnosed with anaplasmosis which is a bacteria transmitted by a tick. Please complete the full antibiotic course as prescribed for you below and follow-up with your primary care provider within one week of discharge. This will be to ensure you are still doing well after returning home. Also, you will need labwork (repeat CBC) and imaging studies ordered. During your admission, a 1.5 cm lesion within the upper pole of the right kidney. This could reflect a solid mass or cyst. A nonemergent renal protocol CT is recommended. This is a study that requires contrast which cannot be done unless your kidney function is normal. Your primary care provider may order this for you on follow-up. It was a pleasure taking care of you! Please call if you have any questions or problems. You can reach a [facility] hospitalist on duty at [facility] 24 hours a day by calling [phone]. Take care of yourself. Lisseth Nichols DO [facility] Hospitalist Pending Studies at Discharge: No Stand-Alone Forms: My [facility] Medications and DC Order Prescriptions: New doxycycline hyclate 100 mg Capsule 100 mg PO BID Qty: 20 RF: 0 Continued alendronate 70 mg tablet 70 mg PO WK RF: 0 Ocuvite Preservision 7,160 unit- 113 mg-100 unit Tablet 1 tab PO DAILY RF: 0 Admission Data Admit Date/Time: 08/07/21 22:39 Attending Provider: Lisseth Nichols Admit Provider: Dane Martini Primary Care Provider: Johnny Villarreal Other Providers: Dane Martini
== END 2021-08-10 14:08 | disposition home or self-care (01) | DRG 868 ==
LOC: ED 17:36 → 3N 22:39
DX: D69.59 Other secondary thrombocytopenia; R79.89 Other specified abnormal findings of blood chemistry; E87.1 Hypo-osmolality and hyponatremia; M81.0 Age-related osteoporosis without current pathological fracture; R19.7 Diarrhea, unspecified; E86.0 Dehydration; N17.9 Acute kidney failure, unspecified; H91.90 Unspecified hearing loss, unspecified ear; E87.6 Hypokalemia; Z88.2 Allergy status to sulfonamides; A79.82 Anaplasmosis [A. phagocytophilum]; Z79.83 Long term (current) use of bisphosphonates; N28.89 Other specified disorders of kidney and ureter; D70.3 Neutropenia due to infection